=== PATIENT | male | born 1995 | race Caucasian/White ===

== ENCOUNTER 2018-01-23 14:12 | Emergency (ER) | payer OTHER ==
[~2018-01-23] VITALS: Ht 165.1 cm; Wt 64.0 kg
[2018-01-23] MEDS ORDERED: ibuprofen 200mg tablet PO ONE (14:40)
[2018-01-23 15:01] VITALS: BP 125/89
== END 2018-01-23 15:02 | disposition home or self-care (01) ==
LOC: ER 14:14
DX: T67.2XXA Heat cramp, initial encounter (principal); Z90.89 Acquired absence of other organs; Z98.890 Other specified postprocedural states; X08.8XXA Exposure to other specified smoke, fire and flames, initial encounter; Y93.89 Activity, other specified; Y92.89 Other specified places as the place of occurrence of the external cause; Y99.8 Other external cause status
CPT/HCPCS: 99282